=== PATIENT | female | born 1990 | race Caucasian/White ===

== ENCOUNTER 2021-11-26 06:05 | Emergency (ER) | payer SELFPAY ==
[~2021-11-26] VITALS: Ht 170.2 cm; Wt 55.0 kg
[2021-11-26] MEDS ORDERED: ONDANSETRON HCL 4MG/2ML INJ IV STA (08:31)
[2021-11-26] MEDS ORDERED: MORPHINE SULFATE 4 MG/ML CPJ (NOT FOR IM USE) IV STA (08:31)
[2021-11-26] MEDS ORDERED: SODIUM CHLORIDE 0.9% 1,000 ML IV ONE (08:45)
[2021-11-26 09:51] LABS: CHLORIDE 107 mEq/L (98-107)
[2021-11-26 09:54] LABS: BASOPHILS % 0.6 % (0.0-2.0); EOSINOPHILS % 0.9 % (0.0-5.0); HEMATOCRIT. 41.8 % (36.0-48.0); HEMOGLOBIN. 13.6 g/dL (12.0-16.0); LYMPHOCYTES % 29.1 % (20.0-50.0); MEAN CORPUSCULAR HEMOGLOBIN 28.1 pg (28.0-32.0); MEAN CORPUSCULAR VOLUME 86.2 fL (81.0-99.0); MEAN PLATELET VOLUME 7.8 fl (7.4-10.4); MONOCYTES % 8.7 % (2.0-8.0); NEUTROPHILS % 60.7 % (40.0-76.0); PLATELET 256 x1000/uL (130-400); RED BLOOD CELL COUNT 4.86 mill/uL (4.2-5.4); RED CELL DISTRIBUTION WIDTH 13.2 % (11.6-14.6)
[2021-11-26] MEDS ORDERED: MAGNESIUM/ALUMINUM HYDROXIDE/SIMETHICONE 30ML UDC PO STA (09:58)
[2021-11-26] MEDS ORDERED: VISCOUS LIDOCAINE 2% 15 ML UDC PO STA (09:58)
[2021-11-26 10:00] LABS: HCG SCREEN NEGATIVE
[2021-11-26] MEDS ORDERED: FAMOTIDINE 20MG TABLET PO ONE (10:00)
[2021-11-26 10:03] LABS: CLARITY URINE CLEAR (CLEAR); COLOR URINE YELLOW (YELLOW); PH URINE 8.5 (4.5-8.0); PROTEIN URINE NEGATIVE (NEGATIVE); SPECIFIC GRAVITY URINE 1.021 (1.005-1.030)
[2021-11-26 10:04] LABS: KETONES URINE NEGATIVE (NEGATIVE); LEUKOCYTE ESTERASE URINE NEGATIVE (NEGATIVE); NITRITE URINE NEGATIVE (NEGATIVE); OCCULT BLOOD URINE NEGATIVE (NEGATIVE); UROBILINOGEN URINE 0.2 E.U./dL (0.2-1.0)
[2021-11-26 10:07] VITALS: BP 112/68
[2021-11-26] MEDS ORDERED: FAMO-135 MT (10:25)
[2021-11-26] MEDS ORDERED: ONDA4TAB5 MT (10:25)
== END 2021-11-26 11:08 | disposition home or self-care (01) ==
LOC: ER 06:05
DX: K29.20 Alcoholic gastritis without bleeding (principal); F10.10 Alcohol abuse, uncomplicated; F12.10 Cannabis abuse, uncomplicated; Z90.49 Acquired absence of other specified parts of digestive tract; Y90.9 Presence of alcohol in blood, level not specified
CPT/HCPCS: 36415; 80053; 81003; 83690; 84703; 85025; 96361; 96374; 96375; 99284; J2270; J2405; J7030

== ENCOUNTER 2024-12-12 00:44 | Emergency (ER) | payer MEDICAID ==
[~2024-12-12] VITALS: Ht 162.6 cm; Wt 59.0 kg
[~2024-12-12 00:44] MED LIST: FAMO-135 MT; ONDA4TAB5 MT
[2024-12-12 00:55] VITALS: BP 122/84; PULSE 92; RESP 18; TEMP 36.7; O2SAT 99
[2024-12-12] MEDS ORDERED: PANTOPRAZOLE SODIUM 40 MG/VIAL IV STA (00:59)
[2024-12-12] MEDS: MAGNESIUM/ALUMINUM HYDROXIDE/SIMETHICONE 30ML UDC PO STA (01:08)
== END 2024-12-12 05:04 | disposition left against medical advice (07) ==
LOC: ER 00:44
DX: R10.13 Epigastric pain (principal)
CPT/HCPCS: 99283

== ENCOUNTER 2024-12-12 06:34 | Emergency (ER) | payer MEDICAID ==
[~2024-12-12] VITALS: Ht 162.6 cm; Wt 59.0 kg
[2024-12-12 06:40] VITALS: BP 131/74; PULSE 88; RESP 20; TEMP 36.9; O2SAT 99
[2024-12-12] MEDS ORDERED: DICYCLOMINE 10 MG/5 ML ORAL SYR PO STA (06:40)
[2024-12-12] MEDS: SODIUM CHLORIDE 0.9% 1,000 ML IV ONE (07:45)
[2024-12-12] MEDS: ONDANSETRON HCL 4MG/2ML INJ IV STA (07:45)
[2024-12-12] MEDS: MAGNESIUM/ALUMINUM HYDROXIDE/SIMETHICONE 30ML UDC PO STA (07:45)
[2024-12-12] MEDS: FAMOTIDINE 20MG/2ML VIAL IV STA (07:45)
[2024-12-12] MEDS: DICYCLOMINE HCL 10MG CAPSULE PO NR (08:06)
[2024-12-12 08:46] LABS: CHLORIDE 109 mEq/L (98-107); INR 1.1; POTASSIUM 3.9 mEq/L (3.5-5.1); PROTHROMBIN TIME 12.3 sec (9.6-11.0); SODIUM 141 mEq/L (136-145)
[2024-12-12 08:47] LABS: CALCIUM 9.6 mg/dL (8.7-10.4); CARBON DIOXIDE 20 mEq/L (21-32)
[2024-12-12 08:52] LABS: CREATININE 0.8 mg/dL (0.6-1.0); GLUCOSE 91 mg/dL (70-105); UREA NITROGEN BLOOD 14 mg/dL (9-23)
[2024-12-12 08:54] LABS: ALANINE AMINOTRANSFERASE 12 IU/L (10-49); ALBUMIN 4.6 g/dL (3.2-4.8); ASPARTATE AMINOTRANSFERASE 18 IU/L (<34); BILIRUBIN DIRECT 0.2 mg/dL (<=3.0); BILIRUBIN TOTAL 0.9 mg/dL (0.1-1.0); PROTEIN TOTAL 7.6 g/dL (6.0-8.3)
[2024-12-12] MEDS: ACETAMINOPHEN 1000MG/100ML 100 ML IV ONE (08:57)
[2024-12-12 09:29] LABS: HCG SCREEN NEGATIVE
[2024-12-12] MEDS: ONDANSETRON HCL 4MG/2ML INJ IV ONE (10:40)
[2024-12-12 11:19] LABS: BASOPHILS % 1.2 % (0.0-2.0); EOSINOPHILS % 9.1 % (0.0-5.0); HEMATOCRIT. 36.5 % (36.0-48.0); LYMPHOCYTES % 45.2 % (20.0-50.0); MEAN CORPUSCULAR HEMOGLOBIN 29.1 pg (28.0-32.0); MEAN CORPUSCULAR HGB CONC 32.9 g/dL (31.0-37.0); MEAN CORPUSCULAR VOLUME 88.6 fL (81.0-99.0); MEAN PLATELET VOLUME 8.2 fl (7.4-10.4); MONOCYTES % 9.2 % (2.0-8.0); NEUTROPHILS % 35.3 % (40.0-76.0); PLATELET 254 x1000/uL (130-400); RED BLOOD CELL COUNT 4.12 mill/uL (4.2-5.4); RED CELL DISTRIBUTION WIDTH 12.8 % (11.6-14.6); WHITE BLOOD COUNT 5.3 x1000/uL (4.5-11.0)
== END 2024-12-12 13:24 | disposition left against medical advice (07) ==
LOC: ER 06:34 → EDBEDREQTM 11:26 → EDBEDREQ 11:26 → CANBEDREQ 13:23 → ER 13:24
DX: K21.9 Gastro-esophageal reflux disease without esophagitis (principal); R11.2 Nausea with vomiting, unspecified; F12.90 Cannabis use, unspecified, uncomplicated
CPT/HCPCS: 99284; 96365; 96375; 96361; 80076; 80048; 84703; 83690; 85025; 85610; 36415; 96376; J3490; J2405; J7030; J0131

== ENCOUNTER 2025-10-08 11:43 | Emergency (ER) | payer MEDICAID ==
[~2025-10-08] VITALS: Ht 160 cm; Wt 50.0 kg
[2025-10-08 11:45] VITALS: BP 116/80; PULSE 76; RESP 24; TEMP 98.7; O2SAT 100
== END 2025-10-08 13:30 | disposition left against medical advice (07) ==
LOC: ER 11:43
DX: F41.9 Anxiety disorder, unspecified (principal); R06.02 Shortness of breath
CPT/HCPCS: 99281